=== PATIENT | female | born 1965 | race Caucasian/White ===

== ENCOUNTER 2018-09-01 06:57 | Day surgery (SDC) | payer OTHER ==
[~2018-09-01] VITALS: Ht 157.5 cm; Wt 58.9 kg
[2018-09-01 07:25] VITALS: BP 129/62
[2018-09-01] MEDS ORDERED: LACTATED RINGERS 1,000 ML IV SCH ×2 (07:28→11:00)
[2018-09-01] MEDS ORDERED: DIAZEPAM 5 MG TABLET PO ONE (08:00)
[2018-09-01] MEDS ORDERED: ONDANSETRON 2MG/ML, 2ML IVPush ONE (08:00)
[2018-09-01] MEDS ORDERED: SCOPOLAMINE PATCH, 1.5MG PATCH.TD72 TD ONE (08:00)
[2018-09-01] MEDS ORDERED: ACETAMINOPHEN 500 MG TABLET PO ONE (08:00)
[2018-09-01] MEDS ORDERED: MIDAZOLAM 1 MG/ML, 2ML ONE (08:04)
[2018-09-01] MEDS ORDERED: FENTANYL PF 250 MCG/5ML ONE (08:04)
[2018-09-01] MEDS ORDERED: PROAIR (08:12)
[2018-09-01] MEDS ORDERED: BUPIVACAINE/PF-EPI 0.5% 1:200K ONE (08:21)
[2018-09-01 08:31] LABS: HCG UR SG 1.026 (1.003-1.030)
[2018-09-01] MEDS ORDERED: SUCCINYLCHOLINE 20 MG/ML, 10ML ONE (08:36)
[2018-09-01] MEDS ORDERED: KETOROLAC 30 MG/1 ML ONE (08:36)
[2018-09-01] MEDS ORDERED: PROMETHAZINE 25 MG/ML, 1ML IV PRN (09:00)
[2018-09-01] MEDS ORDERED: ONDANSETRON 2MG/ML, 2ML IV PRN (09:00)
[2018-09-01] MEDS ORDERED: MEPERIDINE/PF 25MG/0.5ML IVPush PRN (09:00)
[2018-09-01] MEDS ORDERED: OXYcodone 5 MG/5 ML ORAL.SOL UDC PO PRN ×2 (09:00→10:00)
[2018-09-01] MEDS ORDERED: MIDAZOLAM 1 MG/ML, 2ML IV PRN (09:00)
[2018-09-01] MEDS ORDERED: ALBUTEROL/IPRATROPIUM 2.5MG/0.5MG, 3 ML NPPB PRN (09:00)
[2018-09-01] MEDS ORDERED: hydrALAzine 20 MG/ML, 1ML IV PRN (09:00)
[2018-09-01] MEDS ORDERED: DIAZEPAM 5 MG/ML, 2ML IVPush PRN (09:00)
[2018-09-01] MEDS ORDERED: HYDROmorphone 2 MG/ML, 1ML IVPush PRN (09:00)
[2018-09-01] MEDS ORDERED: DEXAMETHASONE 4 MG/ML, 1ML ONE (09:12)
[2018-09-01] MEDS ORDERED: CEFAZOLIN 1,000 MG ONE (09:12)
[2018-09-01] MEDS ORDERED: PROPOFOL 10 MG/ML, 20ML ONE (09:12)
[2018-09-01] MEDS ORDERED: ROCURONIUM 10MG/ML,5ML ONE (09:12)
[2018-09-01] MEDS ORDERED: NEOSTIGMINE 1 MG/ML, 10ML ONE (09:12)
[2018-09-01] MEDS ORDERED: GLYCOPYRROLATE 0.2MG/1ML, 5ML ONE (09:12)
[2018-09-01] MEDS ORDERED: PROMETHAZINE 25 MG/ML, 1ML ONE (09:30)
[2018-09-01] MEDS ORDERED: FENTANYL PF 100 MCG/2ML ONE (09:34)
[2018-09-01] MEDS ORDERED: OXYcodone 5 MG/5 ML ORAL.SOL UDC ONE (09:35)
[2018-09-01] MEDS ORDERED: MEPERIDINE/PF 25MG/0.5ML ONE (09:38)
[2018-09-01] MEDS: FENTANYL PF 100 MCG/2ML IV PRN ×2 (09:45→09:50)
[2018-09-01] MEDS ORDERED: ONDANSETRON 2MG/ML, 2ML IVPush PRN (10:00)
[2018-09-01] MEDS ORDERED: KETOROLAC 30 MG/1 ML IVPush PRN (10:00)
[2018-09-01] MEDS ORDERED: MORPHINE SULFATE 4 MG/ML, 1ML IVPush PRN (10:00)
== END 2018-09-01 12:25 | disposition home or self-care (01) ==
LOC: OUT 06:57 → ORIP 09:31 → UNDOADMOB 09:31 → ORIP 12:25
PROVIDERS: ATTEND Surgery
DX: K81.1 Chronic cholecystitis (principal); K21.9 Gastro-esophageal reflux disease without esophagitis; J45.909 Unspecified asthma, uncomplicated; Z88.1 Allergy status to other antibiotic agents; Z88.0 Allergy status to penicillin
CPT/HCPCS: 47562; 81025; 88304; J0330; J0690; J1100; J1885; J2175; J2250; J2405; J2550; J2704; J2710; J3010; J3490; J7120

== ENCOUNTER → 2019-01-19 | Outpatient (CLI) | payer OTHER ==
[~2019-01-19] MED LIST: ALBU90AE INH; MULT-658 PO; PROAIR
[2019-01-19 15:44] LABS: BASOPHILS # (AUTO) 0.06 x10^3/uL (0-0.1); BASOPHILS % (AUTO) 1 % (0-1); EOSINOPHILS # (AUTO) 0.24 x10^3/uL (0-0.4); EOSINOPHILS % (AUTO) 4 % (1-7); LYMPHOCYTES # (AUTO) 2.31 x10^3/uL (1-3.4); LYMPHOCYTES % (AUTO) 36 % (22-44); MD NO; MEAN CORPUSCULAR HEMOGLOBIN 34.6 pg (27.0-34.8); MEAN CORPUSCULAR HGB CONC 33.1 g/dL (32.4-35.8); MEAN CORPUSCULAR VOLUME 104.5 fL (80-100); MEAN PLATELET VOLUME 7.5 fL (7.4-10.4); MONOCYTES # (AUTO) 0.37 x10^3/uL (0.2-0.8); MONOCYTES % (AUTO) 6 % (2-9); NEUTROPHILS # (AUTO) 3.46 x10^3/uL (1.8-6.8); NEUTROPHILS % (AUTO) 54 % (42-75); PLATELET COUNT 368 x10^3/uL (130-400); RED BLOOD COUNT 3.93 x10^6/uL (3.82-5.3); RED CELL DISTRIBUTION WIDTH 13.8 % (9.6-15.2)
[2019-01-19 15:48] LABS: MICROSCOPIC AUTO
[2019-01-19 15:51] LABS: CULTURE INDICATED? NO
[2019-01-19 15:57] LABS: ALANINE AMINOTRANSFERASE 33 U/L (12-78); ALBUMIN 4.2 g/dL (3.4-5.0); ANION GAP 7 mmol/L (5-15); CALCIUM 9.3 mg/dL (8.5-10.1); CHLORIDE 107 mmol/L (98-107); CREATININE 0.67 mg/dL (0.55-1.02)
[2019-01-19 16:02] LABS: ALKALINE PHOSPHATASE 77 U/L (45-117); BILIRUBIN,TOTAL 0.3 mg/dL (0.2-1.0); TOTAL PROTEIN 7.3 g/dL (6.4-8.2)
== END | disposition home or self-care (01) ==
LOC: STAR 14:06
PROVIDERS: ATTEND Obstetrics & Gynecology
DX: Z01.818 Encounter for other preprocedural examination (principal); N93.9 Abnormal uterine and vaginal bleeding, unspecified; Z88.0 Allergy status to penicillin; Z88.1 Allergy status to other antibiotic agents; Z88.8 Allergy status to other drugs, medicaments and biological substances
CPT/HCPCS: 36415; 71046; 80053; 81001; 84702; 85025; 93005

== ENCOUNTER 2019-03-19 14:24 | Observation (INO) | payer OTHER ==
[~2019-03-19] VITALS: Ht 157.5 cm; Wt 62.0 kg
[2019-03-20 13:15] VITALS: BP 105/68
== END 2019-03-20 16:01 | disposition home or self-care (01) ==
LOC: ED 16:30 → EDIP 18:02 → INTOOBSV 18:02 → 5SO 19:12
PROVIDERS: ADMIT Family Medicine; ATTEND Family Medicine
DX: R07.89 Other chest pain (principal); R06.02 Shortness of breath; R42 Dizziness and giddiness; D75.89 Other specified diseases of blood and blood-forming organs; L65.9 Nonscarring hair loss, unspecified; R68.89 Other general symptoms and signs; L30.9 Dermatitis, unspecified; F41.9 Anxiety disorder, unspecified; E03.9 Hypothyroidism, unspecified; F17.210 Nicotine dependence, cigarettes, uncomplicated; Z88.0 Allergy status to penicillin; Z88.1 Allergy status to other antibiotic agents; Z88.2 Allergy status to sulfonamides
CPT/HCPCS: 36415; 71045; 71275; 80048; 80053; 82607; 83735; 84443; 84481; 84484; 85025; 85379; 86225; 86226; 86235; 93005; 93306; 93880; 99284; G0378; Q9967